=== PATIENT | female | born 1940 | race Caucasian/White ===

== ENCOUNTER 2024-09-02 16:34 | Inpatient (IN) | payer MEDICARE ==
[~2024-09-02] VITALS: Ht 165.1 cm; Wt 113.4 kg
[2024-09-02 19:32] LABS: BASOPHILS # (AUTO) 0.1 (0.0-0.1); BASOPHILS % 0.6 % (0.0-1.0); EOSINOPHILS # (AUTO) 0.4 (0.0-0.4); EOSINOPHILS % 2.3 % (0.0-6.0); HEMATOCRIT 35.1 % (34.2-44.1); HEMOGLOBIN 11.1 g/dL (12.0-16.0); LYMPHOCYTES # (AUTO) 1.1 (1.0-3.2); LYMPHOCYTES % 6.7 % (18.0-39.1); MEAN CORPUSCULAR HEMOGLOBIN 29.6 pg (28-32); MEAN CORPUSCULAR HGB CONC 31.6 g/dL (31-35); MEAN CORPUSCULAR VOLUME 93.6 fL (81-99); NEUTROPHILS # (AUTO) 14.1 (2.1-6.9); NEUTROPHILS % 83.8 % (38.7-80.0); PLATELET COUNT 327 x10e3/uL (140-360); RED BLOOD COUNT 3.75 x10e6/uL (3.6-5.1); RED CELL DISTRIBUTION WIDTH 14.1 % (11.7-14.4); WHITE BLOOD COUNT 16.78 x10e3/uL (4.8-10.8)
[2024-09-02 19:52] LABS: ALBUMIN/GLOBULIN RATIO 0.8 (0.8-2.0); ANION GAP 16.7 mmol/L (8-16); BILIRUBIN,TOTAL 0.3 mg/dL (0.2-1.2); CALCIUM 8.6 mg/dL (8.4-10.2); CREATININE, SERUM 0.93 mg/dL (0.57-1.11); POTASSIUM 3.7 mmol/L (3.5-5.1); TOTAL PROTEIN 6.7 g/dL (6.5-8.1)
[2024-09-02] MEDS: ONDANSETRON HCL INJ 2MG/ML 2ML 2 MG/ML VIAL IV STA (19:55)
[2024-09-02] MEDS: Morphine 4mg INJECTION 4 MG/ML INJ IV STA (19:55)
[2024-09-02] MEDS ORDERED: IOPAMIDOL 370 MG/ML 100 ML INFUS..BTL INJ ONE (20:02)
[2024-09-02 21:46] LABS: TROPONIN I 0.013 ng/mL (0-0.300)
[2024-09-02] MEDS: SODIUM CHLORIDE 0.9% 1000ML 1,000 ML IV SCH (22:59)
[2024-09-03] MEDS: ONDANSETRON HCL INJ 2MG/ML 2ML 2 MG/ML VIAL IV PRN (00:17)
[2024-09-03] MEDS: Morphine 4mg INJECTION 4 MG/ML INJ IV PRN (00:18)
[2024-09-03] MEDS: DIPHENHYDRAMINE HCL 25 MG CAP PO PRN (03:15)
[2024-09-03] MEDS: DIPHENHYDRAMINE HCL INJ 50 MG/ML VIAL IV STA (05:10)
[2024-09-03 05:11] LABS: BASOPHILS # (AUTO) 0.1 (0.0-0.1); BASOPHILS % 0.6 % (0.0-1.0); EOSINOPHILS # (AUTO) 0.6 (0.0-0.4); EOSINOPHILS % 4.1 % (0.0-6.0); HEMATOCRIT 35.7 % (34.2-44.1); HEMOGLOBIN 10.9 g/dL (12.0-16.0); LYMPHOCYTES # (AUTO) 1.8 (1.0-3.2); LYMPHOCYTES % 13.2 % (18.0-39.1); MEAN CORPUSCULAR HGB CONC 30.5 g/dL (31-35); MEAN CORPUSCULAR VOLUME 94.9 fL (81-99); MONOCYTES # (AUTO) 0.9 (0.2-0.8); NEUTROPHILS # (AUTO) 9.9 (2.1-6.9); NEUTROPHILS % 74.6 % (38.7-80.0); PLATELET COUNT 303 x10e3/uL (140-360); RED BLOOD COUNT 3.76 x10e6/uL (3.6-5.1); RED CELL DISTRIBUTION WIDTH 14.3 % (11.7-14.4); WHITE BLOOD COUNT 13.27 x10e3/uL (4.8-10.8)
[2024-09-03] MEDS: FAMOTIDINE 20 MG/2 ML VIAL IV STA (05:11)
[2024-09-03 05:41] LABS: ALBUMIN 2.8 g/dL (3.5-5.0); ALBUMIN/GLOBULIN RATIO 0.7 (0.8-2.0); ANION GAP 14.7 mmol/L (8-16); BILIRUBIN,TOTAL 0.4 mg/dL (0.2-1.2); CALCIUM 8.4 mg/dL (8.4-10.2); CREATININE, SERUM 0.98 mg/dL (0.57-1.11); POTASSIUM 3.7 mmol/L (3.5-5.1); TOTAL PROTEIN 6.6 g/dL (6.5-8.1)
[2024-09-03 05:47] LABS: TROPONIN I 0.012 ng/mL (0-0.300)
[2024-09-03] MEDS ORDERED: ACETAMINOPHEN 325 MG TAB PO PRN (10:00)
[2024-09-03] MEDS ORDERED: HYDRALAZINE HCL 20 MG/ML VIAL IV PRN (10:00)
[2024-09-03] MEDS ORDERED: MYRBETRIQ50 MG PO (10:42)
[2024-09-03] MEDS ORDERED: CEFDINIR300 MG PO (10:42)
[2024-09-03] MEDS ORDERED: MONTELUKAST SOD10 MG PO (10:42)
[2024-09-03] MEDS ORDERED: LISINOPRIL-HCT1 EAC1 PO (10:42)
[2024-09-03] MEDS ORDERED: NITROFURANTOIN100 M1 PO (10:42)
[2024-09-03] MEDS ORDERED: QUETIAPINE FUMA25 MG PO (10:42)
[2024-09-03] MEDS ORDERED: ATORVASTATIN CA10 MG PO (10:42)
[2024-09-03] MEDS ORDERED: ASPIRIN EC81 MG PO (10:42)
[2024-09-03] MEDS: FLUCONAZOLE 200 MG/100 ML 100 ML IV SCH (11:45)
[2024-09-03] MEDS: HYDROXYZINE HCL 10 MG TAB PO SCH (11:46)
[2024-09-03 12:04] VITALS: PULSE 79; RESP 17; TEMP 98
[2024-09-03] MEDS: LORATADINE 10 MG TAB PO SCH (13:01)
[2024-09-03] MEDS: SENNA-S TABLET PO SCH (13:16)
[2024-09-03 13:34] VITALS: BP 122/60
[2024-09-03] MEDS: HYDROCODONE/APAP 7.5MG-325MG 1 EA TAB PO PRN (14:21)
[2024-09-03 16:47] VITALS: BP 96/45
[2024-09-03 17:20] VITALS: PULSE 77; RESP 20; TEMP 97.7; O2SAT 98
[2024-09-03] MEDS: SODIUM CHLORIDE 0.9% 1000ML 1,000 ML IV ONE (17:59)
[2024-09-03] MEDS: ENOXAPARIN SOD INJ 40 MG/0.4 ML SYR SC SCH (17:59)
[2024-09-03 20:00] VITALS: BP 112/67; PULSE 77; RESP 18; TEMP 97; O2SAT 99
[2024-09-04] VITALS: BP 122/105; PULSE 84; RESP 18; TEMP 98.6; O2SAT 94
[2024-09-04] MEDS: SODIUM CHLORIDE 0.9% 250ML 250 ML ONE (01:20)
[2024-09-04] MEDS: SODIUM CHLORIDE 0.9% 1000ML 1,000 ML ONE (01:20)
[2024-09-04 04:00] VITALS: BP 141/69; PULSE 82; RESP 18; TEMP 97.8; O2SAT 98
[2024-09-04 08:23] VITALS: BP 120/47; PULSE 97; RESP 19; TEMP 97.4; O2SAT 100
[2024-09-04 16:33] VITALS: BP 119/49; PULSE 73; RESP 18; TEMP 98.1; O2SAT 98
[2024-09-04 20:00] VITALS: BP 92/47; PULSE 72; RESP 20; TEMP 97.7; O2SAT 93
[2024-09-05] VITALS (8 sets, daily range): BP systolic 100–139; BP diastolic 47–85; PULSE 72–95; RESP 16–20; TEMP 97–98.4; O2SAT 94–100
[2024-09-06] VITALS (7 sets, daily range): BP systolic 115–145; BP diastolic 38–80; PULSE 71–76; RESP 18–20; TEMP 97.4–97.8; O2SAT 97–99
[2024-09-06] MEDS: SODIUM CHLORIDE 0.9% 250ML 250 ML ONE (21:41)
[2024-09-07] VITALS (8 sets, daily range): BP systolic 105–148; BP diastolic 54–70; PULSE 50–72; RESP 18–20; TEMP 97.5–98; O2SAT 92–100
[2024-09-08] VITALS (8 sets, daily range): BP systolic 139–188; BP diastolic 61–70; PULSE 68–75; RESP 17–20; TEMP 97.7–98.1; O2SAT 96–100
[2024-09-09] VITALS: BP 102/59; PULSE 68; RESP 20; TEMP 97.8; O2SAT 97
[2024-09-09 04:00] VITALS: BP 129/64; PULSE 97; RESP 19; TEMP 97.7; O2SAT 100
[2024-09-09 06:48] LABS: BASOPHILS # (AUTO) 0.1 (0.0-0.1); BASOPHILS % 1.3 % (0.0-1.0); EOSINOPHILS # (AUTO) 0.8 (0.0-0.4); EOSINOPHILS % 8.1 % (0.0-6.0); HEMATOCRIT 32.3 % (34.2-44.1); LYMPHOCYTES # (AUTO) 2.4 (1.0-3.2); LYMPHOCYTES % 23.3 % (18.0-39.1); MONOCYTES # (AUTO) 0.8 (0.2-0.8); MONOCYTES % 7.6 % (4.4-11.3); NEUTROPHILS % 58.7 % (38.7-80.0); PLATELET COUNT 308 x10e3/uL (140-360); RED BLOOD COUNT 3.33 x10e6/uL (3.6-5.1); WHITE BLOOD COUNT 10.18 x10e3/uL (4.8-10.8)
[2024-09-09 07:09] LABS: ANION GAP 17.9 mmol/L (8-16); CREATININE, SERUM 0.97 mg/dL (0.57-1.11); POTASSIUM 4.9 mmol/L (3.5-5.1)
[2024-09-09 08:00] VITALS: BP 130/59; PULSE 69; RESP 16; TEMP 97.5; O2SAT 99
[2024-09-09 16:00] VITALS: BP 158/70; PULSE 70; RESP 17; TEMP 97.4; O2SAT 98
[2024-09-09 20:00] VITALS: BP 170/76; PULSE 71; RESP 18; TEMP 97.7; O2SAT 98
[2024-09-09] MEDS ORDERED: ALTEPLASE RECOMBINANT 2 MG/2 ML VIAL IV PRN (23:00)
[2024-09-09 23:42] VITALS: BP 156/51; PULSE 66; RESP 20; TEMP 97.7; O2SAT 97
[2024-09-10] VITALS (7 sets, daily range): BP systolic 111–162; BP diastolic 51–95; PULSE 70–88; RESP 18–19; TEMP 97.5–98.8; O2SAT 96–99
[2024-09-11 03:39] VITALS: BP 141/84; PULSE 78; RESP 18; TEMP 97.4; O2SAT 100
[2024-09-11 08:00] VITALS: BP 171/66; PULSE 74; RESP 20; TEMP 97.7; O2SAT 100
[2024-09-11 08:23] VITALS: BP 141/84; PULSE 78; RESP 18; TEMP 97.4; O2SAT 100
[2024-09-11 09:00] VITALS: BP 141/84; PULSE 78; RESP 18; TEMP 97.4; O2SAT 100
== END 2024-09-11 11:07 | DRG 603 ==
LOC: ER 17:40 → ERHOLD 21:33 → MED/SURG3 09-03 12:55
PROVIDERS: ADMIT Internal Medicine; ATTEND Internal Medicine
PROC: 02HV33Z Insertion of Infusion Device into Superior Vena Cava, Percutaneous Approach (ICD-10-PCS; principal; 2024-09-03)
DX: L03.312 Cellulitis of back [any part except buttock and flank] (principal); E66.01 Morbid (severe) obesity due to excess calories; Z68.41 Body mass index [BMI] 40.0-44.9, adult; L89.159 Pressure ulcer of sacral region, unspecified stage; L89.119 Pressure ulcer of right upper back, unspecified stage; L89.129 Pressure ulcer of left upper back, unspecified stage; L89.139 Pressure ulcer of right lower back, unspecified stage; L89.149 Pressure ulcer of left lower back, unspecified stage; I10 Essential (primary) hypertension; I70.1 Atherosclerosis of renal artery; F03.90 Unspecified dementia, unspecified severity, without behavioral disturbance, psychotic disturbance, mood disturbance, and anxiety; K80.20 Calculus of gallbladder without cholecystitis without obstruction; R53.81 Other malaise; K21.9 Gastro-esophageal reflux disease without esophagitis; E78.5 Hyperlipidemia, unspecified; M19.90 Unspecified osteoarthritis, unspecified site; R26.2 Difficulty in walking, not elsewhere classified; K59.00 Constipation, unspecified; Z99.3 Dependence on wheelchair; Z90.49 Acquired absence of other specified parts of digestive tract
CPT/HCPCS: 36415; 36569; 71045; 74177; 80048; 80053; 82550; 84484; 85025; 93306; 93970; 99252; 99285; J1200; J1308; J1450; J1650; J2270; J2405; J2543; J3410; J7030; J7050; Q9967